=== PATIENT | male | born 2000 | race Two or more races ===

== ENCOUNTER 2024-02-28 20:42 | Emergency (ER) | payer OTHER ==
[~2024-02-28] VITALS: Ht 175.3 cm; Wt 70.3 kg
== END 2024-02-28 21:56 | disposition home or self-care (01) ==
LOC: ER 20:42
DX: S05.8X2A Other injuries of left eye and orbit, initial encounter (principal); Y93.59 Activity, other involving other sports and athletics played individually; Y93.89 Activity, other specified; Y92.89 Other specified places as the place of occurrence of the external cause; H52.10 Myopia, unspecified eye; H50.89 Other specified strabismus; H52.209 Unspecified astigmatism, unspecified eye